=== PATIENT | male | born 1990 | race Caucasian/White ===

== ENCOUNTER 2025-11-15 09:49 | Outpatient (CLI) | payer OTHER, SELFPAY | END 2025-11-15 09:50 | disposition home or self-care (01) | PROVIDERS: PCP Family Medicine; Visit Provider Family Medicine | DX: E66.9 Obesity, unspecified (principal); Z68.41 Body mass index [BMI] 40.0-44.9, adult; R03.0 Elevated blood-pressure reading, without diagnosis of hypertension | CPT/HCPCS: 80048; 80061 ==